=== PATIENT | female | born 1960 | race Caucasian/White ===

== ENCOUNTER 2018-05-21 07:36 | Day surgery (SDC) | payer OTHER ==
[2018-05-19 12:26] VITALS: BMI 45.4
[2018-05-21] MEDS ORDERED: PROPOFOL 200 MG/20 ML VIAL ONE (12:38)
[2018-05-21] MEDS ORDERED: Lidocaine 1% PF 5 ML VIAL ONE (12:38)
--- NOTE | 2018-05-21 23:08 | OP ---
DATE OF PROCEDURE: 05/21/2018 PROCEDURE: Esophagogastroduodenoscopy with biopsy. SURGEON: Harpreet Dixon M.D. MEDICATIONS: Given per Anesthesiology Department. PREPROCEDURE DIAGNOSES: 1. Symptoms of gastroesophageal reflux disease despite therapy. 2. Nausea, vomiting. POSTPROCEDURE DIAGNOSES: 1. Normal esophagus. 2. Z-line at 38 cm and regular. 3. Antral erythema, otherwise normal stomach. 4. Normal duodenum. PROCEDURE IN DETAIL: A written consent was obtained prior to procedure. After adequate sedation, th e forward-viewing endoscope was advanced down the hypopharynx under direct vision to the second porti on of duodenum. Both the second portion and the bulb appeared normal. Pylorus is patent. The mid b shaquille hyperemia was noted and was biopsied. The antrum, body, fundus, and cardia appeared normal. Mul tiple fundic gland polyps were noted. Retroflexion showed a 2 cm small hiatal hernia. The Z-line wa s regular and located at 38 cm from the incisors. The distal, mid, and upper esophagus appeared norm al without any mucosal abnormality. The stomach was then decompressed, the instrument was then fully removed. The patient tolerated the procedure well. ASSESSMENT: 1. Normal esophagus without any esophagitis. 2. Mucosal hyperemia, nonspecific. 3. Fundic gland polyps. 4. Otherwise normal upper endoscopy. 5. Recent severe reflux symptoms, this likely caused by exacerbation of steroid therapy which is cur rently improving. RECOMMENDATIONS: 1. Antireflux surgery. 2. We will check biopsy for H. pylori. 3. Continue with omeprazole 40 mg p.o. b.i.d., we will decrease down to once a day as her symptoms i mproved.
== END 2018-05-21 09:55 | disposition home or self-care (01) ==
LOC: SDC 07:36
PROVIDERS: ATTEND Internal Medicine Gastroenterology
PROC: 0DB68ZX Excision of Stomach, Via Natural or Artificial Opening Endoscopic, Diagnostic (ICD-10-PCS; principal; 2018-05-21)
DX: K29.50 Unspecified chronic gastritis without bleeding (principal); K21.9 Gastro-esophageal reflux disease without esophagitis; K44.9 Diaphragmatic hernia without obstruction or gangrene; Z79.899 Other long term (current) drug therapy; Z88.0 Allergy status to penicillin; Z91.041 Radiographic dye allergy status
CPT/HCPCS: 88305; 88312; J2001; J2704

== ENCOUNTER 2018-05-26 12:50 | Outpatient (CLI) | payer OTHER ==
--- NOTE | 2018-05-26 14:17 | RAD ---
TWO VIEWS CHEST: History: Dyspnea. FINDINGS: The lungs are well aerated. No evidence of active intrathoracic disease seen. No evidence of effusion s, pneumonia, or pneumothorax is seen. IMPRESSION: Normal two views chest. POS: [facility]
== END 2018-05-26 12:51 | disposition home or self-care (01) ==
LOC: RAD 12:50
PROVIDERS: ATTEND Internal Medicine Pulmonary Disease
DX: R06.00 Dyspnea, unspecified (principal)
CPT/HCPCS: 71046